=== PATIENT | female | born 1975 | race Caucasian/White ===

== ENCOUNTER 2023-11-20 06:51 | Day surgery (SDC) | payer OTHER, MEDICAID ==
[2023-11-20] MEDS ORDERED: Propofol 200 MG/20 ML SDV ONE ×2 (07:31→08:36)
[2023-11-20] MEDS ORDERED: fentaNYL 50 MCG/ML SDV ONE (07:31)
[2023-11-20] MEDS ORDERED: Midazolam 1 MG/ML 2 ML SDV ONE (07:31)
[2023-11-20] MEDS: Lactated Ringers 1,000 ML IV SCH (07:39)
== END 2023-11-20 10:15 | disposition home or self-care (01) ==
LOC: JP.SDS 06:51
PROVIDERS: ATTEND Student in an Organized Health Care Education/Training Program
DX: Z12.11 Encounter for screening for malignant neoplasm of colon (principal); K63.5 Polyp of colon; E66.9 Obesity, unspecified; Z68.35 Body mass index [BMI] 35.0-35.9, adult; Z91.011 Allergy to milk products
CPT/HCPCS: 45380; 88305; J2250; J2704; J3010; J7120

== ENCOUNTER 2025-03-23 23:04 | Emergency (ER) | payer MEDICAID, OTHER ==
[2025-03-24] MEDS: Lidocaine 1% 5 ML VIAL INJECT ONE (00:21)
[2025-03-24] MEDS: Bacitracin Oint 1 GM U/D Packet TOP ONE (00:21)
[2025-03-24] MEDS: Diphtheria,Pertussis(Acell),Tetanus Vaccine 0.5 ML Syringe IM ONE (00:21)
== END 2025-03-24 01:07 | disposition home or self-care (01) ==
LOC: JP.ED 23:04
DX: S01.01XA Laceration without foreign body of scalp, initial encounter (principal); E03.9 Hypothyroidism, unspecified; Z79.890 Hormone replacement therapy; Z79.899 Other long term (current) drug therapy; Z91.011 Allergy to milk products; Z23 Encounter for immunization; Z88.1 Allergy status to other antibiotic agents; W22.09XA Striking against other stationary object, initial encounter
CPT/HCPCS: 12001; 90471; 90715; 99282; J2003